=== PATIENT | female | born 1995 | race Two or more races ===

== ENCOUNTER 2024-09-05 07:26 | Emergency (ER) | payer MEDICAID, SELFPAY ==
[2024-09-05 07:36] VITALS: BP 102/69; PULSE 71; RESP 17; TEMP 37.1; O2SAT 100; BMI 22.3
--- NOTE | 2024-09-05 07:42 | XR_ITS ---
Examination: Complete OB ultrasound, less than 14 weeks, transabdominal Date and time of exam: September 05, 2024 0803 hours INDICATIONS: Right pelvic pain and vaginal bleeding onset today Technique: Obstetrical ultrasound images less than 14 weeks performed via transabdominal imaging Findings: A normal shaped single intrauterine gestation is present in the uterus. Uterus 10.5 x 7.9 cm pole 2.5 cm corresponds to 9 weeks 4 days gestational age, adjacent subchorionic hemorrhage 16 x 5 x 10 mm Posterior fundal area of fibroid degeneration 2.8 cm Cardiac motion 166 BPM Ultrasonographic survey of visible and placental structures unremarkable. Amniotic fluid volume appears appropriate for this estimated gestational age. Right ovary 3.3 cm arterial flow Left ovary 2.4 cm arterial flow IMPRESSION: Viable intrauterine gestation 9 weeks 4 days Given the subchorionic hemorrhage, consider short-term follow-up pelvic sonography.
--- NOTE | 2024-09-05 07:49 | PD.EDVAGBL ---
ED OB Contraction Preg RMI/HPI General Chief complaint: Vaginal Bleeding Stated complaint: 10 weeks OB, vaginal bleeding today Time Seen by Provider: 09/05/24 07:37 Arrival date/time: 09/05/24 07:26 29-year-old female G3, P2 approximately 10 weeks presents emergency department today complaints of vaginal spotting and pelvic cramping today Limitations: no limitations Related Data Home Medications ?Medication ?Instructions ?Recorded ?Confirmed folic acid 1 mg tablet 1 mg PO QDAY 08/24/20 08/24/20 vit,calcium 128-iron fum 1 tab PO DAILY 08/24/20 08/24/20 28 mg iron-folic acid 800 mcg tablet Previous Rx's ?Medication ?Instructions ?Recorded docusate sodium 100 mg capsule 100 mg PO BID #60 caps 08/26/20 (Colace) ibuprofen 800 mg tablet 800 mg PO Q6H pain #120 tabs 08/26/20 Allergies Allergy/AdvReac Type Severity Reaction Status Date / Time NKA* Allergy Uncoded 09/05/24 07:30 Review of Systems Review of Systems Systems Reviewed: All systems reviewed, normal except as documented Constitutional Constitutional: Reports system reviewed and no additional complaints, except as documented, Denies fever(s) and Denies headache(s) Eyes Eyes: Reports system reviewed and no additional complaints, except as documented and Denies blurry vision ENT Ears, Nose, Mouth, and Throat: Reports system reviewed and no additional complaints, except as documented, Denies headache(s), Denies nasal congestion and Denies nasal discharge Cardiovascular Cardiovascular: Reports system reviewed and no additional complaints, except as documented, Denies chest pain and Denies dyspnea Respiratory Respiratory: Reports system reviewed and no additional complaints, except as documented, Denies chest congestion, Denies cough and Denies dyspnea Gastrointestinal Gastrointestinal: Reports system reviewed and no additional complaints, except as documented and Denies abdominal pain Genitourinary Genitourinary: Reports abnormal vaginal bleeding and Reports pelvic pain Integumentary/Breasts Skin/Breast: Reports system reviewed and no additional complaints, except as documented and Denies rash Neurologic Neurologic: Reports system reviewed and no additional complaints, except as documented, Reports as per HPI and Denies headache(s) Past Medical History Past Medical History NEUROLOGIC: Negative Neurological Disorders CARDIAC: Negative Cardiac Disorders or Congestive Heart Failure RESPIRATORY: Negative Chronic Obstructive Pulmonary Disease (COPD) GASTROINTESTINAL: Positive Hepatitis (HEPATITIS A); Negative Gastrointestinal Disorders GENITOURINARY: Negative Genitourinary Disorders or Renal Disease MUSCULOSKELETAL: Negative Musculoskeletal Disorders ENDOCRINE: Negative Endocrine Disorders, Diabetes Mellitus Type 1 or Diabetes Mellitus Type 2 HEMATOLOGIC: Negative Blood Disorders OTHER HISTORY: Positive Hospitalization (LABOR- ONLY) and Chicken Pox; Negative Autoimmune Disease, Falls, Blood Transfusions, Anesthesia Reactions, MRSA, Measles, Mumps, Rubella (Kazakh Measles), Pertussis or Cancer Family History FAMILY HISTORY: Positive Family Cardiac Disorders (bradycardia- father) and Family Cancer (cervical CA- mga and mother); Negative Family Psychiatric Problems, Family Respiratory Disorders, Family Gastrointestinal Problems, Family Surgery or Family Anesthesia Reaction Social History SMOKING STATUS: Never smoker ED Exam General Limitations: Present no limitations General appearance: Present alert and in no apparent distress Head Head exam: Present atraumatic, normocephalic and normal inspection Eye Eye exam: Present normal appearance, PERRL and EOMI; Absent conjunctival injection ENT ENT exam: Present normal exam, normal oropharynx and mucous membranes moist Neck Neck exam: Present normal inspection, full ROM and trachea midline Chest Chest inspection: Present normal inspection and symmetric chest wall rise Respiratory Respiratory exam: Present normal lung sounds bilaterally; Absent respiratory distress Cardiovascular Cardiovascular exam: Present regular rate, normal rhythm and normal heart sounds Abdominal Exam Abdominal exam: Present soft and normal bowel sounds; Absent distention, tenderness, guarding, rebound or rigidity Extremities Exam Extremities exam: Present normal inspection and full ROM Back Exam Back exam: Present normal inspection and full ROM Neurological Exam Neurological exam: Present alert, oriented X3 and CN II-XII intact Psychiatric Psychiatric exam: Present normal affect and normal mood Skin Skin exam: Present warm, dry, intact and normal color Course Quality Measures none Orders Category Date Time Status US OB <= 14 weeks fetus Stat Exams 09/05/24 07:42 Completed ABO/RH Type Stat Lab 09/05/24 09:10 Completed Beta HCG,Quantitative Stat Lab 09/05/24 09:10 Completed CBC Stat Lab 09/05/24 09:10 Completed Comprehensive Metabolic Panel Stat Lab 09/05/24 09:10 Completed Vital Signs Vital signs: Vital Signs Temperature 98.7 F 09/05/24 07:36 Pulse Rate 71 09/05/24 07:36 Respiratory Rate 17 09/05/24 07:36 Blood Pressure 102/69 09/05/24 07:36 Pulse Oximetry (%) 100 09/05/24 07:36 Oxygen Delivery Method Room Air 09/05/24 07:36 O2 saturation 100% room air within normal limits Vaginal Bleeding MDM Narrative MDM Narrative: 29-year-old female G3, P2 approximately 10 weeks presents emergency department today complaints of vaginal spotting and pelvic cramping today On exam patient well-appearing patient's not appear ill or toxic patient is nontender abdomen patient is hemodynamically stable Lab work as well as ultrasound obtained Lab work and ultrasound consistent with viable Patient does have subchorionic hemorrhage patient explained to follow-up with TOWER SWITCH OPERATOR Patient struck to follow-up with TOWER SWITCH OPERATOR soon as possible for worsening symptoms return immediately Patient data External records reviewed:: [facility] previous records Clinical information provided by:: patient Social determinants that could affect healthcare access:: none Patient has the following chronic illnesses:: None How is presenting disease/condition affected by chronic disease/condition?: no chronic disease Evaluation data The following diagnostics were reviewed and interpreted by me:: lab results and radiology exam(s) Lab and/or radiology exams considered but not ordered:: Labs radiology obtain Interpretation Summary: Reviewed by me Medications / Prescriptions Medications or Prescriptions considered but not ordered:: Given no meds Medication administrations:: Given no meds Consultations Consultation(s) initiated? (list below): No Diagnosis Vaginal Bleeding Differential Diagnosis: missed and threatened Most likely diagnosis given after review of the tests above:: Threatened Admission Indicated Admission indicated?: not indicated Admission Request Was there a request for admission?: No Disposition Plan Disposition Plan: Discharge Discharge Attestation Discharge Attestation: The patient and all family members were given an opportunity to ask questions and understood the discharge instructions. Discharge instructions specifically effects, indications for sooner follow up or return to the emergency department, and the expected course of current diagnosis. Patient condition: Stable Discharge Plan Plan Patient Disposition: HOME (Self Care) Disposition Comment: Stable Prescriptions/Referrals Prescriptions/Med Rec: No Action folic acid 1 mg Tablet 1 mg PO QDAY vit no.[id number] 28 mg iron- 800 mcg Tablet 1 tab PO DAILY ibuprofen 800 mg tablet 800 mg PO Q6H MDD 4 Qty: 120 0RF docusate sodium [Colace] 100 mg capsule 100 mg PO BID Qty: 60 0RF Referrals: Mauri Cameron MD [Primary Care Provider] - 09/07/24 Problem List Clinical Impression: Subchorionic bleed Patient/Caregiver Discharge Instructions Education Materials: Bleeding During Early Additional Instructions: Please follow-up with TOWER SWITCH OPERATOR as discussed for worsening symptoms return immediately Print Language: Chinese Stand Alone Forms: [employer]heeda Award Info., Patient Portal Info Letter PA/REGISTERED NURSE OBSTETRICS Supervising Physician PA/REGISTERED NURSE OBSTETRICS Supervising Physician: Dr torres
[2024-09-05 09:29] LABS: Basophils % (Auto) 0 % (0-2.5); Eosinophils % (Auto) 0 % (0-10); Hematocrit 38.4 % (36.0-46.0); Hemoglobin 13.2 g/dL (12.0-16.0); Immature Granulocytes % (Auto) 0 % (0-0); Immature Granulocytes Auto 0.03 Thou/mm3 (0.00-0.00); Lymphocytes # (Auto) 1.4 Thou/mm3 (1.0-4.8); Lymphocytes % (Auto) 20 % (10-50); Mean Corpuscular HGB Conc 34.4 g/dl (31.0-37.0); Mean Corpuscular Hemoglobin 31.1 pg (25.0-35.0); Mean Corpuscular Volume 90 fL (80-100); Monocytes # (Auto) 0.5 Thou/mm3 (0.0-0.8); Monocytes % (Auto) 7 % (0-12); Neutrophils % (Auto) 72 % (37-80); Nucleated Red Blood Cell % 0 /100 WBC (0); Platelet Count 190 Thou/mm3 (140-440); RDW Standard Deviation 45.1 fL (36.4-46.3); Red Blood Count 4.25 Miln/mm3 (4.00-5.20); White Blood Count 6.9 Thou/mm3 (3.6-11.0)
[2024-09-05 10:07] LABS: Alanine Aminotransferase 8 U/L (10-49); Albumin, Serum 4.6 gm/dL (3.5-5.0); Albumin/Globulin Ratio 1.7 (1.2-2.2); Alkaline Phosphatase 58 U/L (46-116); Anion Gap 9 (7-16); Aspartate Amino Transferase < 8 U/L (0-34); BUN/Creatinine Ratio 16 Ratio (12-20); Bilirubin,Total 0.8 mg/dL (0.3-1.2); Blood Urea Nitrogen 8 mg/dL (9-23); Calcium 9.6 mg/dL (8.3-10.6); Calcium (Corrected) 9.6 mg/dL (8.5-10.1); Chloride 103 mMol/L (98-107); Creatinine (Component) 0.5 mg/dL (0.6-1.3); Estimated Creatinine Clearance 133.7 mL/min (>60); Globulin 2.7 gm/dL (2.3-3.5); Glucose 82 mg/dL (74-106); Osmolality,Calculated 271 (275-295); Potassium 3.7 mMol/L (3.4-5.1); Sodium 137 mMol/L (136-145); Total Protein 7.3 gm/dL (5.7-8.2); eGFR > 60 See Note
[2024-09-05 10:57] LABS: Beta HCG,Quantitative 112999 mIU/mL (<5.0)
== END 2024-09-05 11:51 | disposition home or self-care (01) ==
PROVIDERS: Nurse Practitioner Primary Care; Emergency Provider Emergency Medicine; PCP Obstetrics & Gynecology
DX: O20.9 Hemorrhage in early pregnancy, unspecified (principal); Z3A.10 10 weeks gestation of pregnancy
CPT/HCPCS: 36415; 76801; 80053; 84702; 85025; 86900; 86901; 99284

== ENCOUNTER 2025-01-31 13:53 | Outpatient (AMB) | payer MEDICAID, SELFPAY ==
[2025-01-31 14:10] VITALS: BP 94/61; PULSE 83; RESP 17; TEMP 36.7; O2SAT 97; BMI 28.0
--- NOTE | 2025-01-31 14:10 | OBCLNT_ITS ---
Vital Signs 01/31/25 14:10 Height 1.57 m Height Method Measured Weight 69.173 kg Weight Measurement Method Standing Scale BMI 28.0 BP 94/61 Blood Pressure Source Automatic Cuff Blood Pressure Location Right Upper Arm Position Sitting Respiration 17 Pulse 83 Pulse Source Monitor Temp 98.0 F Temp Source Temporal Artery Scan Pulse Oximetry (%) 97 Oxygen Delivery Method Room Air Allergies/Home Meds Allergies & Medications Allergies NKA* Allergy (Uncoded 01/31/25 14:12) Medication Reconciliation vit,calcium 128-iron fum 28 mg iron-folic acid 800 mcg tablet 1 tab PO DAILY 08/24/20 [History Confirmed 01/31/25] Intake Visit Data Collection New Patient or Established: Established Patient (seen at [facility] within 3 years) Reason for Visit:: OBI Consent obtained for Telemed Visit: No Seen by Clinical Staff ONLY (RN/MA): No Wire Basket Maker Required: No Do You Feel Safe at Home: Yes Authorities Contacted: N/A PCP or OBGYN visit in last 3 months: No Hx Now: Yes Are you currently on any form of Control: No Pain Present Currently: No Pain Scale Used: Chavez-Garza/Numerical Pain scale:: 0 Smoking Status Smoking Status: Never smoker Questionnaires Covid-19 Vaccine Questionnaire Has patient been vacinated for Covid-19 Have you been vacinated for Covid-19: Yes PHQ-9 PHQ-2 Over the last 2 weeks, how often have you been bothered by any of the following problems? 1. Little interest or pleasure in doing things: not at all 2. Feeling down, depressed, or hopeless: not at all Total score: 0 PHQ-9 3. Trouble falling or staying asleep, or sleeping too much: Not at all 4. Feeling tired or having little energy: Not at all 5. Poor appetite or overeating: Not at all 6. Feeling bad about yourself - or that you are a failure or have let yourself or your family down: Not at all 7. Trouble concentrating on things, such as reading the newspaper or watching television: Not at all 8. Moving or speaking so slowly that other people could have noticed? - Or the opposite - being so fidgety or restless that you have been moving around a lot more than usual: not at all 9. Thoughts that you would be better off or of hurting yourself in some way: Not at all Total score: 0 If you checked off any problems, how difficult have these problems made it for you to do your work, take care of things at home, or get along with other people?: not difficult at all Source: Developed by Drs. Jeet Conklin, Lola Miller, Bulmaro Portillo and colleagues, with an educational camelia from [employer]. Depression screen completed yes Social History Living Situation History Lives With: Family Housing: House Tobacco History Smoking Status: Never smoker Alcohol History Alcohol Intake: Never Domestic Abuse History Do You Feel Safe at Home: Yes History of Present Illness HPI Narrative 29-year-old 3 para 2 for OBI. Patient is a transfer from Dr. Pinto's office for her first visit at Dr. Pinto 30 weeks 6 days it also confirmed EDC office was at 8 weeks. Her last menstrual period June 27, 2024. And EDC April 04, 2025. Patient has sure dates. She had a 8-week ultrasound in [facility] that confirmed dates by LMP and then patient also had an ultrasound January 29 at30w6. normal anatomy. + cf on NT. JENNIFER - for CF. has been uncomplicated. Denies existence of chronic illness. No social habits. No surgeries. Patient's last 2 babies were vaginal births and uncomplicated. Reports good movement. Denies leaking, bleeding, contractions. 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 Patient is a transfer from Dr. Pinto's office with records. Her last period was June 27, 2024. Estimated due date April 04, 2025. And this was confirmed by both an 8-week ultrasound and a 30-week 6 ultrasound. has been uncomplicated except for positive cystic fibrosis screen. The father the baby was screened and he screened negative. Reports good movement. Denies bleeding denies contractions denies leaking fluids. TDAP, discuss ptl s/s and precaution, hydrate. continue PNV. rtc 2 week obc Menstrual History Menstrual reliability: definite Flow: normal Menstrual regularity: regular Monthly: Yes Age at menarche: 12 On control pills at conception: No OB History : 3 Para: 2 Hx # Pregnancies: 0 Hx Total # of Abortions (Spontaneous & Elective): 0 # of Living Children: 2 Delivery History 1st : Child's name: ELISE BRAN date: 06/25/16 sex: male Gestational age at delivery (weeks): 40 Delivery type: vaginal weight (lbs): 2721.554 g History of depression before or after : No 2nd : Child's name: TRAVON BRAN date: 08/25/20 sex: female Gestational age at delivery (weeks): 40 Delivery type: vaginal weight (lbs): 3175.147 g History of depression before or after : No Infection History & Risk Evaluation History of STDs: none HIV risk evaluation: low risk Hepatitis B risk evaluation: low risk Patient or partner has history of Genital Herpes: No Genetic Screening & History Genetic Screening/Teratology Counseling - Includes patient, baby's father, or anyone in either family with: 1. Patient's age 35 years or older as of estimated date of delivery: No 2. Thalassemia (Equatorial [place]an, Gibraltarian, Mediterranean, or Background); MCV less than 80: No 3. Neural Tube Defect (Meningomyelocele, Spina Bifida, or Anencephaly): No 4. Congenital Heart Defect: No 5. Down Syndrome: No 6. José Manuel-Sachs (Ashkenazi Alevism, Cajun, Luxembourger [place]): No 7. Shahab Disease (Ashkenazi Alevism): No 8. Familial Dysautonomia (Ashkenazi Alevism): No 9. Sickle Cell Disease or Trait (): No 10. Hemophilia or other blood disorders: No 11. Muscular Dystrophy: No 12. Cystic Fibrosis: No 13. [place]'s Chorea: No 14. Mental Retardation/Autism: No 15. Other inherited genetic or chromosomal disorder: No 16. Maternal Metabolic Disorder (EG,TYPE 1 Diabetes, PKU): No 17. Patient or baby's father had a child with defects not listed above: No 18. Recurrent loss or a stillbirth: No 19. Medications (including supplements, vitamins, herbs or otc drugs)/illicit/recreational drugs/alcohol since last menstrual period: No 20. Any other: No Infection History 1. Live with someone with TB or exposed to TB: No 2. Rash or viral illness since last menstrual period: No 3. Hepatitis B,C: No Other (see comments) Source: [employer] Review of Systems Review of Systems Systems Reviewed: All systems reviewed, normal except as documented Exam General Limitations: no limitations General Appearance: alert, in no apparent distress, comfortable, cooperative, healthy appearing, well developed and well groomed Head Head exam: atraumatic, normocephalic and normal inspection Chest Chest inspection: Present normal inspection and symmetric chest wall rise Resp Respiratory exam: Present normal lung sounds bilaterally Card Cardiovascular exam: Present regular rate, normal rhythm and normal heart sounds Abdominal Abdominal exam: Present soft and normal bowel sounds Psych Psychiatric exam: Present normal affect and normal mood Office Procedures OB Clinic LOC & Office Proc's Nursing/Assessment Patient Status: Established Patient OB Clinic Nursing Assessment: Medication Reconciliation, Update PMH in EMR and Vital Signs OB Clinic Coordination of Care: Complex Care and Chronic Disease 1-5, Education Complex Pt/Fam, Consent,records obtained, informed consent and Education Simp Pt/Fam Special Needs: Heart tones Established Patient Charge Established Patient Point Assignment: 125 Established Patient Point Charge: EP Level 4 (120-155) Immunizations diphth,pertus(acell),tetanus 2.5 Lf unit-8 mcg-5 Lf/0.5mL IM syringe Performing Provider: Hedy Ortiz CNM Performing Location: [facility] Administered by: Zoë Mcclendon MA on 01/31/25 14:31 Dose Route Admin Location Dispensed Lot Number Expiration Date [facility] [place][NOTE 2] Contract Designer 0.5 mL IM Left Deltoid 0.5 mL [id number] 03/17/27 16564-022-14 [employer] VIS Given Date VIS Provided VIS Publication Date 01/31/25 Single Vaccine 25 Eligibility Eligibility Date Funding Source Public [facility] Assessment & Plan Diagnosis / Problem List (1) Encounter for supervision of normal in multigravida in third trimester: Status: Acute Plan Tdap today. Increase fluids. Discussed labor precautions. kick count reviewed. Continue vitamins. Return in 3 weeks OB check Additional Plan Follow Up: 2 Weeks (obc)
== END 2025-01-31 14:20 | disposition home or self-care (01) ==
LOC: HODSOBC 13:53
PROVIDERS: PCP Obstetrics & Gynecology; Referring Provider Obstetrics & Gynecology; Supervising Provider Advanced Practice Midwife; Visit Provider Advanced Practice Midwife
DX: O09.893 Supervision of other high risk pregnancies, third trimester (principal); Z14.1 Cystic fibrosis carrier; Z3A.31 31 weeks gestation of pregnancy; Z23 Encounter for immunization
CPT/HCPCS: 90471; 90715; 99214; G0463

== ENCOUNTER 2025-02-26 14:03 | Outpatient (AMB) | payer MEDICAID, SELFPAY ==
[2025-02-26 14:16] VITALS: BP 104/64; PULSE 84; RESP 18; TEMP 36.7; O2SAT 97; BMI 28.2
--- NOTE | 2025-02-26 14:16 | OBCLNT_ITS ---
Vital Signs 02/26/25 14:16 Height 1.57 m Height Method Stated Weight 69.626 kg Weight Measurement Method Standing Scale BMI 28.2 BP 104/64 Blood Pressure Source Automatic Cuff Blood Pressure Location Left Upper Arm Position Sitting Respiration 18 Pulse 84 Pulse Source Monitor Temp 98.1 F Temp Source Oral Pulse Oximetry (%) 97 Oxygen Delivery Method Room Air Allergies/Home Meds Allergies & Medications Allergies NKA* Allergy (Uncoded 02/26/25 14:17) Medication Reconciliation vit,calcium 128-iron fum 28 mg iron-folic acid 800 mcg tablet 1 tab PO DAILY 08/24/20 [History Confirmed 02/26/25] Intake Visit Data Collection New Patient or Established: Established Patient (seen at [facility] within 3 years) Reason for Visit:: CARE Seen by Clinical Staff ONLY (RN/MA): No Vegetable Grader Required: No Do You Feel Safe at Home: Yes Authorities Contacted: N/A PCP or OBGYN visit in last 3 months: Yes Hx Now: Yes Are you currently on any form of Control: No Pain Present Currently: No Pain Scale Used: Chavez-Garza/Numerical Pain scale:: 0 Smoking Status Smoking Status: Never smoker Questionnaires Covid-19 Vaccine Questionnaire Has patient been vacinated for Covid-19 Have you been vacinated for Covid-19: Yes PHQ-9 PHQ-2 Over the last 2 weeks, how often have you been bothered by any of the following problems? 1. Little interest or pleasure in doing things: not at all 2. Feeling down, depressed, or hopeless: not at all Total score: 0 PHQ-9 3. Trouble falling or staying asleep, or sleeping too much: Not at all 4. Feeling tired or having little energy: Not at all 5. Poor appetite or overeating: Not at all 6. Feeling bad about yourself - or that you are a failure or have let yourself or your family down: Not at all 7. Trouble concentrating on things, such as reading the newspaper or watching television: Not at all 8. Moving or speaking so slowly that other people could have noticed? - Or the opposite - being so fidgety or restless that you have been moving around a lot more than usual: not at all 9. Thoughts that you would be better off or of hurting yourself in some way: Not at all Total score: 0 Source: Developed by Drs. Jeet Conklin, Lola Miller, Bulmaro Portillo and colleagues, with an educational camelia from [employer]. 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 Patient is a transfer from Dr. Pinto's office with records. Her last period was June 27, 2024. Estimated due date April 04, 2025. And this was confirmed by both an 8-week ultrasound and a 30-week 6 ultrasound. has been uncomplicated except for positive cystic fibrosis screen. The father the baby was screened and he screened negative. Reports good movement. Denies bleeding denies contractions denies leaking fluids. TDAP, discuss ptl s/s and precaution, hydrate. continue PNV. rtc 2 week obc 02/14/25 -?-?-?-?-?-?-?-?-?-?-?-?- 33w 1d 69.57 kg 92/56 absent cephalic 33 143 active Reports good movement. No OB complaints. Denies vaginal leaking. Denies bleeding. Denies contractions Discussed kick counts twice a day. Comfort measures for pret erm labor and backache. Increase fluids. Discussed danger signs. Return in 2 weeks 02/26/25 -?-?-?-?-?-?-?-?-?-?-?-?- 34w 6d 69.626 kg 104/64 absent cephalic 35 143 active Reports good movement. Denies leaking or bleeding. Denies contractions. No OB complaints GBS next visit. Increase fluids. Discussed kick counts twice a day. Return week OB check GABY Calculator Estimated Delivery Date Method Current WG Current Estimate 04/03/25 LMP (Certain) 34w 6d Other Estimates 04/03/25 Ultrasound #1 34w 6d 04/03/25 Ultrasound #2 34w 6d Notes Visit Date: 01/31/25 Last Updated by: Hedy Ortiz CNM 29 yo . lmp 06/27/24. EDC 04/04/25, O+,abs-,rpr;;nr, rub imm, hbsag-,hiv-,hc-, GC/CT-, NIPT/AFP-, CF=/sma-. fob cf screen-, MFM referal done. 3rd tri lab wnl Office Procedures OB Clinic LOC & Office Proc's Nursing/Assessment Patient Status: Established Patient OB Clinic Nursing Assessment: Medication Reconciliation, Update PMH in EMR and Vital Signs OB Clinic Coordination of Care: Complex Care and Chronic Disease 1-5, Consent,records obtained, informed consent, Education Simp Pt/Fam, 1 Ins Authorization, Lab and Imaging orders, Results/Orders obtained and Staff clarify orders Special Needs: Heart tones Established Patient Charge Established Patient Point Assignment: 150 Established Patient Point Charge: EP Level 4 (120-155) Assessment & Plan Diagnosis / Problem List (1) Encounter for supervision of normal in multigravida in third trimester: Status: Acute Plan Discussed labor precautions. Discussed kick counts twice a day. GBS next visit. Increase fluids. Return week OB. Additional Plan Follow Up: 1 Week (obc)
== END 2025-02-26 15:59 | disposition home or self-care (01) ==
LOC: HODSOBC 14:03
PROVIDERS: Supervising Provider Advanced Practice Midwife; Visit Provider Advanced Practice Midwife
DX: Z34.83 Encounter for supervision of other normal pregnancy, third trimester (principal); Z3A.34 34 weeks gestation of pregnancy
CPT/HCPCS: 99214; G0463

== ENCOUNTER 2025-03-06 11:34 | Outpatient (AMB) | payer MEDICAID, SELFPAY ==
[2025-03-06 11:51] VITALS: BP 96/56; PULSE 87; RESP 17; TEMP 36.8; O2SAT 98; BMI 28.9
--- NOTE | 2025-03-06 11:51 | AMB.OBVISIT ---
Vital Signs 03/06/25 11:51 Height 1.57 m Height Method Measured Weight 71.384 kg Weight Measurement Method Standing Scale BMI 28.9 BP 96/56 L Blood Pressure Source Automatic Cuff Blood Pressure Location Right Upper Arm Position Sitting Respiration 17 Pulse 87 Pulse Source Monitor Temp 98.3 F Temp Source Temporal Artery Scan Pulse Oximetry (%) 98 Oxygen Delivery Method Room Air Allergies/Home Meds Allergies & Medications Allergies NKA* Allergy (Uncoded 03/06/25 11:52) Medication Reconciliation vit,calcium 128-iron fum 28 mg iron-folic acid 800 mcg tablet 1 tab PO DAILY 08/24/20 [History Confirmed 03/06/25] Intake Visit Data Collection New Patient or Established: Established Patient (seen at [facility] within 3 years) Reason for Visit:: OBC Consent obtained for Telemed Visit: No Seen by Clinical Staff ONLY (RN/MA): No Telephone Assembler Required: No Do You Feel Safe at Home: Yes Authorities Contacted: N/A PCP or OBGYN visit in last 3 months: Yes Date of Last PCP or OBGYN visit: 02/26/25 Hx Now: Yes Are you currently on any form of Control: No Pain Present Currently: No Pain Scale Used: Chavez-Garza/Numerical Pain scale:: 0 Smoking Status Smoking Status: Never smoker Questionnaires Covid-19 Vaccine Questionnaire Has patient been vacinated for Covid-19 Have you been vacinated for Covid-19: Yes PHQ-9 PHQ-2 Over the last 2 weeks, how often have you been bothered by any of the following problems? 1. Little interest or pleasure in doing things: not at all PHQ-9 8. Moving or speaking so slowly that other people could have noticed? - Or the opposite - being so fidgety or restless that you have been moving around a lot more than usual: not at all Source: Developed by Drs. Jeet Conklin, Lola Miller, Bulmaro Portillo and colleagues, with an educational camelia from [email or web address]. 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 Patient is a transfer from Dr. Pinto's office with records. Her last period was June 27, 2024. Estimated due date April 04, 2025. And this was confirmed by both an 8-week ultrasound and a 30-week 6 ultrasound. has been uncomplicated except for positive cystic fibrosis screen. The father the baby was screened and he screened negative. Reports good movement. Denies bleeding denies contractions denies leaking fluids. TDAP, discuss ptl s/s and precaution, hydrate. continue PNV. rtc 2 week obc 02/14/25 <del>?</del> 33w 1d 69.57 kg 92/56 absent cephalic 33 143 active Reports good movement. No OB complaints. Denies vaginal leaking. Denies bleeding. Denies contractions Discussed kick counts twice a day. Comfort measures for labor and backache. Increase fluids. Discussed danger signs. Return in 2 weeks 02/26/25 <del>?</del> 34w 6d 69.626 kg 104/64 absent cephalic 35 143 active Reports good movement. Denies leaking or bleeding. Denies contractions. No OB complaints GBS next visit. Increase fluids. Discussed kick counts twice a day. Return week OB check 03/06/25 <del>?</del> 36w 0d 71.384 kg 96/56 absent cephalic 36 145 active Reports good movement. Complains of increased pressure and cramps. Denies leaking or bleeding. GBS today. Reviewed labor precautions. Reviewed kick counts twice a day. Increase fluids. Discussed danger signs symptoms and ER precautions return week OB GABY Calculator Estimated Delivery Date Method Current WG Current Estimate 04/03/25 LMP (Certain) 36w 0d Other Estimates 04/03/25 Ultrasound #1 36w 0d 04/03/25 Ultrasound #2 36w 0d Notes Visit Date: 01/31/25 Last Updated by: Hedy Ortiz CNM 29 yo . lmp 06/27/24. EDC 04/04/25, O+,abs-,rpr;;nr, rub imm, hbsag-,hiv-,hc-, GC/CT-, NIPT/AFP-, CF=/sma-. fob cf screen-, MFM referal done. 3rd tri lab wnl Office Procedures OB Clinic LOC & Office Proc's Nursing/Assessment Patient Status: Established Patient OB Clinic Nursing Assessment: Medication Reconciliation, Update PMH in EMR and Vital Signs OB Clinic Coordination of Care: Complex Care and Chronic Disease 1-5, Consent,records obtained, informed consent, Education Simp Pt/Fam, 4+ Authorizations needed and Results/Orders obtained Special Needs: Heart tones Established Patient Charge Established Patient Point Assignment: 135 Established Patient Point Charge: EP Level 4 (120-155) Assessment & Plan Diagnosis / Problem List (1) Encounter for supervision of normal in multigravida in third trimester: Status: Acute Plan GBS today. Discussed labor precautions. Discussed ER precautions and danger signs symptoms. Kick count twice a day was reviewed with patient. Increase fluids. Return in a week OB check Additional Plan Follow Up: 1 Week (OBC)
== END 2025-03-06 12:02 | disposition home or self-care (01) ==
LOC: HODSOBC 11:34
PROVIDERS: Supervising Provider Advanced Practice Midwife; Visit Provider Advanced Practice Midwife
DX: O09.93 Supervision of high risk pregnancy, unspecified, third trimester (principal); Z36.85 Encounter for antenatal screening for Streptococcus B; Z3A.36 36 weeks gestation of pregnancy
CPT/HCPCS: 99214; G0463

== ENCOUNTER 2025-03-15 10:38 | Outpatient (AMB) | payer MEDICAID, SELFPAY ==
[2025-03-15 10:55] VITALS: BP 99/60; PULSE 80; RESP 16; TEMP 36.7; O2SAT 97; BMI 29.4
--- NOTE | 2025-03-15 10:55 | OBCLNT_ITS ---
Vital Signs 03/15/25 10:55 Height 1.57 m Height Method Stated Weight 72.575 kg Weight Measurement Method Standing Scale BMI 29.4 BP 99/60 Blood Pressure Source Automatic Cuff Blood Pressure Location Left Upper Arm Position Sitting Respiration 16 Pulse 80 Pulse Source Monitor Temp 98.0 F Temp Source Oral Pulse Oximetry (%) 97 Oxygen Delivery Method Room Air Allergies/Home Meds Allergies & Medications Allergies NKA* Allergy (Uncoded 03/15/25 10:56) Medication Reconciliation vit,calcium 128-iron fum 28 mg iron-folic acid 800 mcg tablet 1 tab PO DAILY 08/24/20 [History Confirmed 03/15/25] Intake Visit Data Collection New Patient or Established: Established Patient (seen at [facility] within 3 years) Reason for Visit:: CARE Seen by Clinical Staff ONLY (RN/MA): No Improvement Coordinator Required: No Do You Feel Safe at Home: Yes Authorities Contacted: N/A PCP or OBGYN visit in last 3 months: Yes Hx Now: Yes Are you currently on any form of Control: No Pain Present Currently: No Pain Scale Used: Chavez-Garza/Numerical Pain scale:: 0 Smoking Status Smoking Status: Never smoker Questionnaires Covid-19 Vaccine Questionnaire Has patient been vacinated for Covid-19 Have you been vacinated for Covid-19: Yes PHQ-9 PHQ-2 Over the last 2 weeks, how often have you been bothered by any of the following problems? 1. Little interest or pleasure in doing things: not at all 2. Feeling down, depressed, or hopeless: not at all Total score: 0 PHQ-9 3. Trouble falling or staying asleep, or sleeping too much: Not at all 4. Feeling tired or having little energy: Not at all 5. Poor appetite or overeating: Not at all 6. Feeling bad about yourself - or that you are a failure or have let yourself or your family down: Not at all 7. Trouble concentrating on things, such as reading the newspaper or watching television: Not at all 8. Moving or speaking so slowly that other people could have noticed? - Or the opposite - being so fidgety or restless that you have been moving around a lot more than usual: not at all 9. Thoughts that you would be better off or of hurting yourself in some way: Not at all Total score: 0 Source: Developed by Drs. Jeet Conklin, Lola Miller, Bulmaro Portillo and colleagues, with an educational camelia from [employer]. 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 Patient is a transfer from Dr. Pinto's office with records. Her last period was June 27, 2024. Estimated due date April 04, 2025. And this was confirmed by both an 8-week ultrasound and a 30-week 6 ultrasound. has been uncomplicated except for positive cystic fibrosis screen. The father the baby was screened and he screened negative. Reports good movement. Denies bleeding denies contractions denies leaking fluids. TDAP, discuss ptl s/s and precaution, hydrate. continue PNV. rtc 2 week obc 02/14/25 -?-?-?-?-?-?-?-?-?-?-?-?- 33w 1d 69.57 kg 92/56 absent cephalic 33 143 active Reports good movement. No OB complaints. Denies vaginal leaking. Denies bleeding. Denies contractions Discussed kick counts twice a day. Comfort measures for labor and backache. Increase fluids. Discussed danger signs. Return in 2 weeks 02/26/25 -?-?-?-?-?-?-?-?-?-?-?-?- 34w 6d 69.626 kg 104/64 absent cephalic 35 143 active Reports good movement. Denies leaking or bleeding. Denies contractions. No OB complaints GBS next visit. Increase fluids. Discussed kick counts twice a day. Return week OB check 03/06/25 -?-?-?-?-?-?-?-?-?-?-?-?- 36w 0d 71.384 kg 96/56 absent cephalic 36 145 active Reports good movement. Complains of increased pressure and cramps. Denies leaking or bleeding. GBS today. Revi ewed labor precautions. Reviewed kick counts twice a day. Increase fluids. Discussed danger signs symptoms and ER precautions return week OB 03/15/25 -?-?-?-?-?-?-?-?-?-?-?-?- 37w 2d 72.575 kg 99/60 absent cephalic 37 145 active Reports good movement. Denies leaking, denies bleeding, denies contractions. Reports increased pressure Discussed GBS results. Discussed labor precautions. Kick counts twice a day. Increase fluids. Continue prenatals. Discussed danger signs. Return week OB check GABY Calculator Estimated Delivery Date Method Current WG Current Estimate 04/03/25 LMP (Certain) 37w 2d Other Estimates 04/03/25 Ultrasound #1 37w 2d 04/03/25 Ultrasound #2 37w 2d Notes Visit Date: 03/15/25 Last Updated by: Hedy Ortiz CNM GBS- Visit Date: 01/31/25 Last Updated by: Hedy Ortiz CNM 29 yo . lmp 06/27/24. EDC 04/04/25, O+,abs-,rpr;;nr, rub imm, hbsag-,hiv-,hc-, GC/CT-, NIPT/AFP-, CF=/sma-. fob cf screen-, MFM referal done. 3rd tri lab wnl Office Procedures OB Clinic LOC & Office Proc's Nursing/Assessment Patient Status: Established Patient OB Clinic Nursing Assessment: Medication Reconciliation, Update PMH in EMR and Vital Signs OB Clinic Coordination of Care: Complex Care and Chronic Disease 1-5, Consent,records obtained, informed consent, Education Simp Pt/Fam, Lab and Imaging orders, Results/Orders obtained and Staff clarify orders Special Needs: Car appointment Established Patient Charge Established Patient Point Assignment: 115 Established Patient Point Charge: EP Level 3 (80-115) Assessment & Plan Diagnosis / Problem List (1) Encounter for supervision of normal in multigravida in third trimester: Status: Acute Plan Discussed GBS. Discussed labor precautions. Kick counts twice a day. Increase fluids. Continue prenatals. Discussed danger signs symptoms and ER precautions. Return week OB check Additional Plan Follow Up: 1 Week (obc)
== END 2025-03-15 11:27 | disposition home or self-care (01) ==
LOC: HODSOBC 10:38
PROVIDERS: Supervising Provider Advanced Practice Midwife; Visit Provider Advanced Practice Midwife
DX: Z34.83 Encounter for supervision of other normal pregnancy, third trimester (principal); Z3A.37 37 weeks gestation of pregnancy
CPT/HCPCS: 99213; G0463

== ENCOUNTER 2025-03-26 10:35 | Outpatient (AMB) | payer MEDICAID, SELFPAY ==
[2025-03-26 11:07] VITALS: BP 101/61; PULSE 89; RESP 16; TEMP 36.2; O2SAT 97; BMI 29.3
--- NOTE | 2025-03-26 11:07 | OBCLNT_ITS ---
Vital Signs 03/26/25 11:07 Height 1.57 m Height Method Stated Weight 72.348 kg Weight Measurement Method Standing Scale BMI 29.3 BP 101/61 Blood Pressure Source Automatic Cuff Blood Pressure Location Left Upper Arm Position Sitting Respiration 16 Pulse 89 Pulse Source Monitor Temp 97.2 F Temp Source Oral Pulse Oximetry (%) 97 Oxygen Delivery Method Room Air Allergies/Home Meds Allergies & Medications Allergies NKA* Allergy (Uncoded 03/26/25 11:08) Medication Reconciliation vit,calcium 128-iron fum 28 mg iron-folic acid 800 mcg tablet 1 tab PO DAILY 08/24/20 [History Confirmed 03/26/25] Intake Visit Data Collection New Patient or Established: Established Patient (seen at [facility] within 3 years) Reason for Visit:: OBC Seen by Clinical Staff ONLY (RN/MA): No Quarrying Manager Required: No Do You Feel Safe at Home: Yes Authorities Contacted: N/A PCP or OBGYN visit in last 3 months: Yes Date of Last PCP or OBGYN visit: 03/15/25 Hx Now: Yes Are you currently on any form of Control: No Pain Present Currently: No Pain Scale Used: Chavez-Garza/Numerical Pain scale:: 0 Smoking Status Smoking Status: Never smoker Questionnaires Covid-19 Vaccine Questionnaire Has patient been vacinated for Covid-19 Have you been vacinated for Covid-19: Yes PHQ-9 PHQ-2 Over the last 2 weeks, how often have you been bothered by any of the following problems? 1. Little interest or pleasure in doing things: not at all 2. Feeling down, depressed, or hopeless: not at all Total score: 0 PHQ-9 3. Trouble falling or staying asleep, or sleeping too much: Not at all 4. Feeling tired or having little energy: Not at all 5. Poor appetite or overeating: Not at all 6. Feeling bad about yourself - or that you are a failure or have let yourself or your family down: Not at all 7. Trouble concentrating on things, such as reading the newspaper or watching television: Not at all 8. Moving or speaking so slowly that other people could have noticed? - Or the opposite - being so fidgety or restless that you have been moving around a lot more than usual: not at all 9. Thoughts that you would be better off or of hurting yourself in some way: Not at all Total score: 0 If you checked off any problems, how difficult have these problems made it for you to do your work, take care of things at home, or get along with other people?: not difficult at all Source: Developed by Drs. eJet Conklin, Lola Miller, Bulmaro Portillo and colleagues, with an educational camelia from [employer]. 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 Patient is a transfer from Dr. Pinto's office with records. Her last period was June 27, 2024. Estimated due date April 04, 2025. And this was confirmed by both an 8-week ultrasound and a 30-week 6 ultrasound. has been uncomplicated except for positive cystic fibrosis screen. The father the baby was screened and he screened negative. Reports good movement. Denies bleeding denies contractions denies leaking fluids. TDAP, discuss ptl s/s and precaution, hydrate. continue PNV. rtc 2 week obc 02/14/25 -?-?-?-?-?-?-?-?-?-?-?-?- 33w 1d 69.57 kg 92/56 absent cephalic 33 143 active Reports good movement. No OB complaints. Denies vaginal leaking. Denies bleeding. Denies contractions Discussed kick counts twice a day. Comfort measures for labor and backache. Increase fluids. Discussed danger signs. Return in 2 weeks 02/26/25 -?-?-?-?-?-?-?-?-?-?-?-?- 34w 6d 69.626 kg 104/64 absent cephalic 35 143 active Reports good movement. Denies leaking or bleeding. Denies contractions. No OB complaints GBS next visit. Increase fluids. Discussed kick counts twice a day. Return week OB check 03/06/25 -?-?-?-?-?-?-?-?-?-?-?-?- 36w 0d 71.384 kg 96/56 absent cephalic 36 145 active Reports good movement. Complains of increased pressure and cramps. Denies leaking or bleeding. GBS today. Revi ewed labor precautions. Reviewed kick counts twice a day. Increase fluids. Discussed danger signs symptoms and ER precautions return week OB 03/15/25 -?-?-?-?-?-?-?-?-?-?-?-?- 37w 2d 72.575 kg 99/60 absent cephalic 37 145 active Reports good movement. Denies leaking, denies bleeding, denies contractions. Reports increa sed pressure Discussed GBS re sults. Discussed labor precautions. Kick counts twice a day. Increase fluids. Continue prenatals. Discussed danger signs. Return week OB check 03/26/25 -?-?-?-?-?-?-?-?-?-?-?-?- 38w 6d 72.348 kg 101/61 occasional cephalic 38 135 active sve: L/1/p/soft/high. Fetus active. Denies leaking or bleeding. Increased pressure and cramps. Labor precaution s reviewed with patient. Discussed kick count. Walk and pay attention to labor precautions. Return in a week OB check GABY Calculator Estimated Delivery Date Method Current WG Current Estimate 04/03/25 Manual 38w 6d final GABY: 04/03/25 Other Estimates 04/03/25 LMP (Certain) 38w 6d 04/03/25 Ultrasound #1 38w 6d 04/03/25 Ultrasound #2 38w 6d Notes Visit Date: 03/15/25 Last Updated by: Hedy Ortiz CNM GBS- Visit Date: 01/31/25 Last Updated by: Hedy Ortiz CNM 29 yo . lmp 06/27/24. EDC 04/04/25, O+,abs-,rpr;;nr, rub imm, hbsag-,hiv-,hc-, GC/CT-, NIPT/AFP-, CF=/sma-. fob cf screen-, MFM referal done. 3rd tri lab wnl Office Procedures OB Clinic LOC & Office Proc's Nursing/Assessment Patient Status: Established Patient OB Clinic Nursing Assessment: Medication Reconciliation, Update PMH in EMR and Vital Signs OB Clinic Coordination of Care: Education Complex Pt/Fam, Consent,records obtained, informed consent, Lab and Imaging orders and Staff clarify orders Special Needs: Heart tones Established Patient Charge Established Patient Point Assignment: 110 Established Patient Point Charge: EP Level 3 (80-115) Assessment & Plan Diagnosis / Problem List (1) Encounter for supervision of normal in multigravida in third trimester: Status: Acute Plan Discussed labor precautions. Kick count twice a day. Increase fluids. Continue vitamins and iron. Return in a week OB check Additional Plan Follow Up: 1 Week (obc)
== END 2025-03-26 11:48 | disposition home or self-care (01) ==
LOC: HODSOBC 10:35
PROVIDERS: Supervising Provider Advanced Practice Midwife; Visit Provider Advanced Practice Midwife
DX: Z34.83 Encounter for supervision of other normal pregnancy, third trimester (principal); Z3A.38 38 weeks gestation of pregnancy
CPT/HCPCS: 99213; G0463

== ENCOUNTER 2025-04-02 02:18 | Inpatient (IN) | payer MEDICAID, SELFPAY ==
[2025-04-02] VITALS (28 sets, daily range): BP systolic 101–138; BP diastolic 52–69; PULSE 62–99; RESP 16–99; TEMP 36.7–37; O2SAT 96–99; BMI 26.9
[2025-04-02] MEDS: RINGERS LACTATED 1000 ML 1,000 ML 999 ML IV (03:05)
[2025-04-02] MEDS: MINERAL OIL 30 ML UDC TOP (03:20)
[2025-04-02] MEDS: OXYTOCIN in NS 20 units 20 UNIT/1,000 ML BAG 999 UNIT IV (03:30)
[2025-04-02] MEDS: OXYTOCIN INJ 10 UNIT/ML VIAL IM (03:30)
[2025-04-02] MEDS: BENZO/LANO/ALOE (Dermoplast) 60 GM CAN 1 SPRAY TOP (03:32)
[2025-04-02] MEDS: LIDOCAINE HCL 1% 20 ML VIAL INFL (03:33)
[2025-04-02] MEDS: TRANEXAMIC ACID 1,000 MG IVPB 1,000 MG/100 ML BAG 200 MG IV ×2 (03:52→04:29)
[2025-04-02] MEDS: METHYLERGONOVINE INJ 0.2 MG/ML VIAL IM (03:56)
[2025-04-02] MEDS: IBUPROFEN TAB 400 MG TABLET 800 MG PO ×3 (04:01→20:35)
[2025-04-02 04:17] LABS: Basophils # (Auto) 0.1 Thou/mm3 (0.0-0.2); Basophils % (Auto) 1 % (0-2.5); Eosinophils # (Auto) 0.1 Thou/mm3 (0.0-0.5); Eosinophils % (Auto) 1 % (0-10); Hematocrit 41.1 % (36.0-46.0); Hemoglobin 13.5 g/dL (12.0-16.0); Immature Granulocytes Auto 0.26 Thou/mm3 (0.00-0.00); Lymphocytes # (Auto) 1.9 Thou/mm3 (1.0-4.8); Lymphocytes % (Auto) 16 % (10-50); Mean Corpuscular HGB Conc 32.8 g/dl (31.0-37.0); Mean Corpuscular Hemoglobin 30.4 pg (25.0-35.0); Mean Corpuscular Volume 93 fL (80-100); Monocytes # (Auto) 1.0 Thou/mm3 (0.0-0.8); Monocytes % (Auto) 9 % (0-12); Neutrophils # (Auto) 8.2 Thou/mm3 (1.8-7.7); Neutrophils % (Auto) 71 % (37-80); Nucleated Red Blood Cell # 0.00 Thou/mm3 (0.00-0.00); Nucleated Red Blood Cell % 0 /100 WBC (0); Platelet Count 143 Thou/mm3 (140-440); RDW Standard Deviation 49.8 fL (36.4-46.3); Red Blood Count 4.44 Miln/mm3 (4.00-5.20); White Blood Count 11.5 Thou/mm3 (3.6-11.0)
--- NOTE | 2025-04-02 04:19 | PD.LDHP ---
Documentation for date of: 04/02/25 OB Labor/Induct. HPI History of Present Illness Chief complaint: labor : 3 Para: 2 Term pregnancies: 2 pregnancies: 0 Living children: 2 History of Abortions: Spontaneous and Elective: 0 History of Vaginal deliveries: 2 History of sections: No History of : No Date of last menstrual period: 06/27/24 GABY: 04/04/25 Gestational Age (weeks): 39 Gestational Age (days): 5 Gestational age based on last menstrual period: 39 History of present illness: 29-year-old 3 para 2 admitted for labor and delivery. Complains of leaking fluid and starting contractions at 1 in the morning. History of fast labors. Patient has been followed at [facility] OB clinic. Last. June 27, 2024. Estimated due date March 20, [id number]. Patient's has been uneventful O+, antibody screen negative, RPR nonreactive, rubella immune, hepatitis B negative, hep C negative, HIV negative, GC and Chlamydia were negative. aFP and NIPT were both negative and her carrier screen negative. Normal 1 hour GTT labs. GBS negative History of Present Dating criteria: LMP confirmed by 2nd trimester US Adequate Care: Yes Ultrasounds: normal 1st trimester US and normal mid trimester US Obstetrical complications: none Medical complications: none Labs Labs: Positive: Rubella Titre, Negative: RPR, Hepatitis B, HIV, Chlamydia and Gonorrhea and Unknown: Herpes Type 1, Herpes Type 2, Group Beta Strep and Covid-19 Review of Systems Review of Systems Systems Reviewed: All systems reviewed, normal except as documented Past Medical History Surgical History SURGICAL: Negative Section Meds Home Medications and Allergies Home Medications ?Medication ?Instructions ?Recorded ?Confirmed ?Type vit,calcium 128-iron fum 1 tab PO DAILY 08/24/20 04/02/25 History 28 mg iron-folic acid 800 mcg tablet Allergies Allergy/AdvReac Type Severity Reaction Status Date / Time NKA* Allergy Uncoded 04/02/25 02:38 OB Exam Physical Exam Vital signs: Temp Pulse Resp BP Pulse Ox 98.1 F 75 18 101/55 L 99 04/02/25 02:35 04/02/25 04:19 04/02/25 02:35 04/02/25 04:19 04/02/25 02:49 Narrative: Alert and oriented. Normal heart rate and rhythm. Lungs clear no wheezes. Gravid abdomen. Gynecoid pelvis. Estimated weight 8-1/2 pounds. Vaginal exam admission was 90%, 9, -2. Vertex. 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
--- NOTE | 2025-04-02 04:24 | OBDSUM_ITS ---
Data ([facility]) Data Hx Section: No : 3 Term: 2 : 0 Livin Abortions: Spontaneous & Theraputic: 0 Delivery Data ([facility]) Labor Data Initiation of labor: Spontaneous Induction/Augmentation Agent: None ROM date: 04/02/25 ROM time: 01:00 Amniotic membrane rupture type: Spontaneous Amniotic fluid description: Clear Delivery Data EDC: 04/04/25 EDC calculated by:: LMP/early US confirmation Date of arrival to unit: 04/02/25 Time of arrival to unit: 02:18 Onset of labor date: 04/02/25 Onset of labor time: 01:00 Complete dilation date: 04/02/25 delivery date: 04/02/25 delivery time: 03:25 Placenta delivery date: 04/02/25 Delivered by: Hedy Ortiz Delivery nurse: KEO DOTSON RN [place] nurse: LENARD HUERTA RN Health Occupations Teacher at delivery: No Other staff at delivery: SHAMEKA RNC SEVERIANO MEDINAautomobile rental representative Method Delivery method: Normal Vaginal Delivery Presentation: Vertex position: OA Anesthesia Type Anesthesia Type: Local Delivery Room Medications Delivery room medications: Lidocaine (local), Methergine 0.2 mg IM, Pitocin 10 u IM, Pitocin 20 u IV, Cytotec [address] and other (txa) Placenta Placenta delivery description: Spontaneous (inspected, intact) Cord blood sent to lab: Yes cord blood collection: Cord Blood Type Episiotomy Episiotomy description: None Lacerations #1: Perineal: 1st degree Perineal repair Sutures used for repair: 3.0 Vicryl EBL Estimated blood loss (ml): 400 Umbilical Cord cord description: 3 Vessels [place] Data (Laird) Data order: 1 's gender: Male Identification band number: [id number] weight (gms): 3720 g Weight (pounds): 8 lbs and 3.2 ozs [place] length: 50.8 cm 1 minute: 9 5 minutes: 9
[2025-04-02 04:55] LABS: Syphilis Nonreactive (Nonreactive)
[2025-04-02] MEDS: DOCUSATE SOD 100 MG CAPSULE PO ×2 (09:14→20:32)
[2025-04-02 13:01] LABS: Basophils # (Auto) 0.0 Thou/mm3 (0.0-0.2); Basophils % (Auto) 0 % (0-2.5); Eosinophils # (Auto) 0.0 Thou/mm3 (0.0-0.5); Eosinophils % (Auto) 0 % (0-10); Hematocrit 36.3 % (36.0-46.0); Hemoglobin 12.3 g/dL (12.0-16.0); Immature Granulocytes Auto 0.19 Thou/mm3 (0.00-0.00); Lymphocytes # (Auto) 1.9 Thou/mm3 (1.0-4.8); Lymphocytes % (Auto) 13 % (10-50); Mean Corpuscular HGB Conc 33.9 g/dl (31.0-37.0); Mean Corpuscular Hemoglobin 30.8 pg (25.0-35.0); Mean Corpuscular Volume 91 fL (80-100); Monocytes # (Auto) 1.3 Thou/mm3 (0.0-0.8); Monocytes % (Auto) 9 % (0-12); Neutrophils # (Auto) 11.4 Thou/mm3 (1.8-7.7); Neutrophils % (Auto) 76 % (37-80); Nucleated Red Blood Cell # 0.00 Thou/mm3 (0.00-0.00); Nucleated Red Blood Cell % 0 /100 WBC (0); Platelet Count 145 Thou/mm3 (140-440); RDW Standard Deviation 49.1 fL (36.4-46.3); Red Blood Count 4.00 Miln/mm3 (4.00-5.20); White Blood Count 14.9 Thou/mm3 (3.6-11.0)
[2025-04-02] MEDS: ACETAMINOPHEN 325 MG TABLET 650 MG PO (15:17)
[2025-04-03 00:10] VITALS: BP 106/68; PULSE 63; RESP 16; TEMP 36.6; O2SAT 98
[2025-04-03 03:40] VITALS: BP 116/64; PULSE 67; RESP 16; TEMP 36.6; O2SAT 99
--- NOTE | 2025-04-03 04:24 | ESPR_ITS ---
Subjective Subjective Interval history: No complaints of pain. No dizziness. Bonding and bottlefeeding Exam Vital Signs Temp Pulse Resp BP Pulse Ox O2 Del Method 97.9 F 67 16 116/64 99 Room Air 04/03/25 03:40 04/03/25 03:40 04/03/25 03:40 04/03/25 03:40 04/03/25 03:40 04/03/25 03:40 Narrative Exam Vital signs stable afebrile. Breasts are soft. Fundus firm below the umbilicus. Perineum is intact laceration well-approximated. Small lochia. Uterus well involuted. Negative Homans' sign. 2+ DTRs Objective Labs 04/02/25 12:35 Labs: Laboratory Results - last 24 hr 04/02/25 04/02/25 03:05 12:35 WBC 11.5 H 14.9 H RBC 4.44 4.00 Hgb 13.5 12.3 Hct 41.1 36.3 MCV 93 91 MCH 30.4 30.8 MCHC 32.8 33.9 RDW Std Deviation 49.8 H 49.1 H Plt Count 143 145 Neut % (Auto) 71 76 Lymph % (Auto) [address] [facility] % (Auto) 9 9 Eos % (Auto) 1 0 Baso % (Auto) 1 0 Neut # (Auto) 8.2 H 11.4 H Lymph # (Auto) 1.[address] [place] # (Auto) 1.0 H 1.3 H Eos # (Auto) 0.1 0.0 Baso # (Auto) 0.1 0.0 Immature Gran # (Auto) 0.26 H 0.19 H Absolute Nucleated RBC 0.00 0.00 Immature Gran % 2 H 1 H Nucleated RBC % 0 0 Syphilis Serology Nonreactive Blood Type O Positive Antibody Screen NEGATIVE Blood Bank Wristband ID Yes Assessment & Plan Problem List (1) Active labor at term: Status: Acute Assessment Comment Assessment comment: 24 hr pp Plan Comment Plan Comment: Discharge home with baby. Continue vitamins and iron. Tylenol ibuprofen for pain. Discussed danger signs and symptoms and ER precautions. I discussed wound care and sitz bath's for discomfort. Discussed signs and symptoms of infection. Return in 2 weeks visit. I ordered Colace 100 twice daily for constipation Time Spent With Patient Time: Total time spent is greater than 50% in coordination of care (as documented) at patient's floor/unit and/or counseling patient:
--- NOTE | 2025-04-03 04:25 | ESDS_ITS ---
DS: Providers Provider Date of admission: 04/02/25 03:01 Primary care physician: Physician No Primary/Family Admitting Provider: Hedy Ortiz CNM Attending Provider on Admission: Hedy Ortiz CNM Consults: 04/02/25 04:46 Referral Routine Comment: Attending Provider on DC: Hedy Ortiz CNM Discharging Provider: Hedy Ortiz CNM DS: Diagnosis Problem List Completed Was Problem List Reviewed/Reconciled?: Yes Summary/Hosp Course Brief History: 29-year-old 3 para 2 admitted for labor and delivery. Complains of leaking fluid and starting contractions at 1 in the morning. History of fast labors. Patient has been followed at [facility] clinic. Last. June 27, 2024. Estimated due date March 20, [id number]. Patient's has been uneventful O+, antibody screen negative, RPR nonreactive, rubella immune, hepatitis B negative, hep C negative, HIV negative, GC and Chlamydia were negative. aFP and NIPT were both negative and her carrier screen negative. Normal 1 hour GTT labs. GBS negative Peripartum Data Delivery Method: Normal Vaginal Delivery Episiotomy Description: None Laceration Description: yes (1st perineal) complications: none Time Spent with Patient Time attestation: Total time spent providing and/or coordinating discharge services: Exam Vital Signs Temp Pulse Resp BP Pulse Ox O2 Del Method 97.9 F 67 16 116/64 99 Room Air 04/03/25 03:40 04/03/25 03:40 04/03/25 03:40 04/03/25 03:40 04/03/25 03:40 04/03/25 03:40 Discharge Plan Plan Patient Disposition: HOME (Self Care) Patient condition on transfer: Stable Prescriptions/Referrals Prescriptions/Med Rec: New docusate sodium [Colace] 100 mg capsule 100 mg PO BID Qty: 60 0RF No Action vit no.[id number] 28 mg iron- 800 mcg Tablet 1 tab PO DAILY Referrals: No Primary/Family,Physician [Primary Care Provider] Patient/Caregiver Discharge Instructions Discharge Activity: resume usual activities Print Language: [place] Activity Restrictions/Additional Instructions: Discharge home with baby. Continue vitamins and iron. Tylenol ibuprofen for pain. I gave her prescription for Colace 100 twice daily. Increase fiber increase fluids discussed sitz bath's and wound care. Discussed danger signs symptoms and ER precautions. Discussed signs symptoms of infection. Return in 3 weeks visit Stand Alone Forms: [employer] Award Info., Patient Portal Info Letter Discharge Order Discharge Orders: Discharge (Routine); Ordered 04/03/25 Ordered By: Hedy Ortiz Planned Discharge Date 04/03/25
[2025-04-03 08:00] VITALS: BP 110/62; PULSE 73; RESP 18; TEMP 36.7; O2SAT 98
[2025-04-03] MEDS: DOCUSATE SOD 100 MG CAPSULE PO (08:45)
[2025-04-03 11:31] VITALS: BP 110/78; PULSE 62; RESP 18; TEMP 36.6; O2SAT 98
[2025-04-03 12:00] VITALS: BP 110/70; PULSE 60; RESP 18; TEMP 36.7; O2SAT 98
== END 2025-04-03 15:11 | disposition home or self-care (01) | DRG 560 ==
LOC: S4SX 04:37 → S4NX 06:03
PROVIDERS: Admitting Provider Advanced Practice Midwife; Visit Provider Advanced Practice Midwife
DX: O70.0 First degree perineal laceration during delivery (principal); Z37.0 Single live birth; Z3A.39 39 weeks gestation of pregnancy
CPT/HCPCS: 36415; 59025; 59409; 84112; 85025; 86780; 86850; 86900; 86901; J2210; J2590; J3490; J7120; S0191; A9270